=== PATIENT | male | born 1970 | race Caucasian/White ===

== ENCOUNTER 2017-12-23 10:21 | Emergency (ER) | payer MEDICAID ==
--- NOTE | 2017-12-23 10:22 | EDPHY ---
H & P Time Seen by Provider: 12/23/17 10:21 Constitutional: Initial Vital Signs Temperature (C) 36.5 C 12/23/17 10:33 Heart Rate 80 12/23/17 10:33 Respiratory Rate 18 12/23/17 10:33 Blood Pressure 131/94 H 12/23/17 10:33 O2 Sat (%) 92 12/23/17 10:33 O2 Delivery Mode Room Air Allergies/Adverse Reactions: No Known Allergies Allergy (Unverified 12/23/17 10:36) Home Medications: Medication Instructions Recorded NK [No Known Home Meds] 12/23/17 Medical Decision Making ED Course/Re-evaluation: CHIEF COMPLAINT: Alcohol withdrawal, seizure. HISTORY OF PRESENT ILLNESS: The patient is a 47 y/o male with a long history of alcoholism who arrives via EMS after a witnessed seizure and currently complaining of tremulousness and generally feeling poor. Patient drinks on a daily basis and his last alcohol intake was 18:00 last night, about 16.5 hours ago. This morning he had a witnessed seizure at 7-11. He was conscious and talking upon EMS arrival, but was very tremulous. EMS administered 2.5mg Versed en route with improvement, but not resolution of these symptoms. He continues to feel shaky and poor. He say he feels "all day just very woozy, a deep dizzy, like I'm going to go into a seizure." He denies hallucinations. No ingestions or recent trauma. He denies suicidal or homicidal thoughts or behavior. REVIEW OF SYSTEMS: A comprehensive 10 system review of systems is otherwise negative aside from elements mentioned in the history of present illness and medical decision making. PHYSICAL EXAM: General Appearance: Alert, well hydrated, appropriate, and non-toxic appearing. Head: Atraumatic without scalp tenderness or obvious injury Eyes: Pupils equal, round, reactive to light and accommodation, EOMI, no trauma , no injection. Ears: Clear bilaterally, no perforation, normal landmarks Nose: Atraumatic, no rhinorrhea, clear. Throat: There is no erythema or exudates, no lesions, normal tonsils, mucus membranes moist. Neck: Supple, nontender, no lymphadenopathy. Respiratory: No retractions, no distress, no wheezes, and no accessory muscle use. Lungs are clear to auscultation bilaterally. Cardiovascular: Regular rate and rhythm, no murmurs, rubs, or gallops. Good capillary refill all extremities. Gastrointestinal: Abdomen is soft, nontender, non-distended, no masses, no rebound, no guarding, no peritoneal signs. Musculoskeletal: Normal active ROM of all extremities, atraumatic. Neurological: Alert, appropriate, and interactive. The patient has non-focal cranial nerves, motor, sensory, and cerebellar exam. Skin: No rashes, good turgor, no nodules on palpation. PAST MEDICAL HISTORY: Alcohol abuse PAST SURGICAL HISTORY: Noncontributory SOCIAL HISTORY: From [facility]. Not employed. DIAGNOSTICS/PROCEDURES/CRITICAL CARE TIME: DIFFERENTIAL DIAGNOSIS: The differential diagnosis for the patient's symptoms included but was not limited to alcohol withdrawal, electrolyte abnormality, alcohol withdrawal, medication noncompliance, head injury, OVERNIGHT STOCKER structural abnormality, and break through seizure. MEDICAL DECISION MAKING: I serially questioned the patient and the patient's story given initially has not changed. Symptoms have improved with Ativan. The patient still denies any trauma, any head injury, and any illicit drug use. At this point, the patient is walking the department freely and is clinically sober. We're discharging the patient to the [facility] in stable condition with Librium. Return precautions discussed. - Data Points Medications Given: Discontinued Medications Chlordiazepoxide (Librium 25 Mg Prepack#6) 1 btl TAKEHOME EDNOW ONE Stop: 12/23/17 10:31 Last Admin: 12/23/17 11:15 Dose: 1 btl Sodium Chloride (Ns) 1,000 mls @ 0 mls/hr IV ONCE ONE; Wide Open PRN Reason: Protocol Stop: 12/23/17 10:39 Last Admin: 12/23/17 10:38 Dose: 1,000 mls Lorazepam (Ativan Injection) 2 mg IVP EDNOW ONE Stop: 12/23/17 10:38 Last Admin: 12/23/17 10:38 Dose: 2 mg Departure - Departure Disposition: Home, Routine, Self-Care Clinical Impression: Alcohol withdrawal Qualifiers: Complication of substance-induced condition: with unspecified complication Qualified Code(s): F10.239 - Alcohol dependence with withdrawal, unspecified Condition: Good Instructions: Chlordiazepoxide (By mouth), Alcohol Withdrawal (ED) Additional Instructions: Go directly to the [facility] for detox. Take Librium while there as directed. Return for worsening of condition. Referrals: [facility] [Outside] - As per Instructions Report Scribed for: Krishna Pierce Report Scribed by: Sofía Barnes Date of Report: 12/23/17 Time of Report: 10:27
[2017-12-23] MEDS ORDERED: LORazepam 2 MG/ML INJ ONE (10:25)
[2017-12-23] MEDS ORDERED: CHLORDIAZEPOXIDE 25MG PREPK#6 BTL TAKEHOME ONE (10:30)
[2017-12-23] MEDS ORDERED: LORazepam 2 MG/ML INJ IVP ONE (10:37)
[2017-12-23] MEDS ORDERED: NS 1,000 ML IV ONE (10:38)
[2017-12-23 11:12] VITALS: BP 150/85
== END 2017-12-23 11:36 | disposition home or self-care (01) ==
DX: F10.188 Alcohol abuse with other alcohol-induced disorder (principal)
CPT/HCPCS: 96374; J2060

== ENCOUNTER 2018-02-12 08:39 | Emergency (ER) | payer MEDICAID, OTHER ==
[2018-02-12] MEDS ORDERED: LORazepam 1 MG TAB PO PRN (09:18)
[2018-02-12] MEDS ORDERED: LORazepam 2 MG/ML INJ IVP PRN (09:18)
--- NOTE | 2018-02-12 09:34 | EDPHY ---
HPI/HX/ROS/PE/MDM Narrative: CLINICAL IMPRESSION: Alcohol withdrawal ASSESSMENT/PLAN: 47-year-old male with past medical history of alcohol abuse presents to the emergency department with withdrawal symptoms. Patient is tremulous, mildly anxious, nauseous with an initial CIWA score of 7. He is tachycardic on arrival but alert, oriented, cooperative. No clinical signs of DTs or alcohol withdrawal seizures. No metabolic disturbance, acidosis, electrolyte imbalance , transaminitis, leukocytosis, or secondary signs of infection. Patient improved with IV fluids and Ativan. He was able to tolerate food and water. He agrees to go to the addiction recovery Center. He was stabilized in the ED, sent to the [facility] with a Librium prepack in stable condition. DIFFERENTIAL DX: Differential diagnosis includes but not limited to alcohol withdrawal, delirium tremens, alcohol induced hepatic encephalopathy, wernike's encephalopathy, metabolic disturbance, electrolyte imbalance, severe dehydration, UTI, pyelonephritis ED PROCEDURES: See lab results below ED COURSE: Patient reassessed after IV fluids and Ativan. No longer tremulous, tolerating water and asking for food. Reports improved nausea. CHIEF COMPLAINT: Alcohol withdrawal HPI: 47-year-old male with a history of alcohol abuse presents to the emergency department by EMS with symptoms of alcohol withdrawal. Patient reports he frequently binge drinks with the longest period of sobriety being 2 months. [facility] is currently [facility] He reports he just came off a long 6 day binge where he was drinking"a lot". His last drink was yesterday morning. He is reporting some anxiety, mild headache, tremors, and nausea. He has never been through a formal rehab program but [facility] and had a good experience there. He is willing to go back today. He has no complaints of abdominal pain, bloody emesis, but has noted some blood in his urine associated with flank pain. No purulent penile discharge and no concern for STDs. No reported scrotal or testicular swelling. No rash. No chest pain or shortness of breath. Patient did not take anything prior to arrival and denies other illicit drug abuse. PMH: Homeless, alcoholism Pertinent Past Surgical History: None reported Family History: Noncontributory Social History: Homeless REVIEW OF SYSTEMS: All other systems negative Constitutional: No fever, no chills, + appetite change. Eyes: No discharge, vision change ENT: No sore throat, congestion, ear pain. Cardiovascular: No chest pain, no palpitations. Respiratory: No cough, no shortness of breath. Gastrointestinal: No abdominal pain, no vomiting, positive nausea, no diarrhea. Genitourinary: Positive hematuria, no dysuria, positive intermittent flank pain , pelvic pain Musculoskeletal: No back pain, joint swelling, joint pain, myalgias. Skin: No rashes, color change. Neurological: No headache, dizziness, weakness. PHYSICAL EXAM: General Appearance: Alert, oriented, appropriate, cooperative, NAD, well hydrated, non-toxic appearing, tachycardic, tremulous. HEENT: TMs are clear bilaterally no perforation or FB, no injection, no evidence of serous or mucopurulent otitis. Oropharynx clear is no erythema or exudates, no tonsillar hypertrophy or asymmetry. Dentition without abnormality. Tongue fasciculations noted Eyes: PERRLA, no acute vision change, nystagmus, swelling, discharge, pain or photosensitivity. Conjunctiva pink, no pallor or injection Neck: Supple, nontender, no lymphadenopathy, no midline pain, FROM, no meningismus. Respiratory: There are no retractions, lungs are clear to auscultation. Cardiac: Tachycardic rhythm, no murmurs or gallops.] Gastrointestinal: Abdomen is soft, nontender, bowel sounds normal, no masses/ hernia, no rigidity, guarding or focal peritoneal findings. Neurological: Alert and oriented x 3, CN 2-12 grossly intact, normal gait no ataxia, DTR's intact, normal sensation and strength Skin: Warm, dry, no rashes, no nodules on palpation. Musculoskeletal: Extremities are symmetrical, full range of motion, no tenderness, deformity, swelling, or erythema. Psychiatric: Patient is oriented X 3, there is no agitation, no auditory or visual hallucinations, no suicidal or homicidal ideations. MEDICAL DECISION MAKING: Patient was seen independently. Secondary supervising physician at time of evaluation was Dr. Perez. Diagnosis: Alcohol intoxication, alcohol withdrawal. New, requires workup Summary: See Assessment and Plan for summary of ED visit Clinical lab tests: ordered / reviewed. Patient Progress: Stabilized . (Car Abernathy) ED Course: The patient was evaluated and managed by the Physician Teaching Assistant. I discussed the patient's presentation and course with the physician application assistant and agree with the evaluation. My co-signature indicates that I have reviewed this chart and I agree with the findings and plan of care as documented. I am the secondary supervising physician. (Tamela Perez) - Data Points Laboratory Results: Laboratory Results 02/12/18 08:45 02/12/18 08:45 Medications Given: Discontinued Medications Chlordiazepoxide (Librium 25 Mg Prepack#6) 1 btl TAKEHOME EDNOW ONE Stop: 02/12/18 11:41 Last Admin: 02/12/18 11:51 Dose: 1 btl Sodium Chloride (Ns) 1,000 mls @ 0 mls/hr IV EDNOW ONE; Wide Open PRN Reason: Protocol Stop: 02/12/18 09:48 Last Admin: 02/12/18 10:37 Dose: 1,000 mls Lorazepam (Ativan Injection) 0 mg IVP Q1H PRN; Protocol PRN Reason: Alcohol Withdrawal w/IV access Stop: 02/12/18 21:18 Last Admin: 02/12/18 09:22 Dose: 2 mg General Time Seen by Provider: 02/12/18 08:52 Initial Vital Signs: Initial Vital Signs Temperature (C) 36.6 C 02/12/18 08:39 Heart Rate 86 02/12/18 08:39 Respiratory Rate 18 02/12/18 08:39 Blood Pressure 169/99 H 02/12/18 08:39 O2 Sat (%) 96 02/12/18 08:39 O2 Delivery Mode Room Air Allergies/Adverse Reactions: No Known Allergies Allergy (Unverified 12/23/17 10:36) Departure - Departure Disposition: Home, Routine, Self-Care Clinical Impression: Alcohol withdrawal Condition: Fair Instructions: Chlordiazepoxide (By mouth), Alcohol Withdrawal (ED) Additional Instructions: DISCHARGE INSTRUCTIONS FROM YOUR DOCTOR Thank you for visiting our emergency department today. Please keep in mind that discharge from the emergency department does not mean that there is nothing wrong - it simply means that we have not identified an emergency condition that requires further evaluation or treatment in the hospital. You should always plan to follow up with primary care for re-evaluation of your condition in the next 2-3 days. If you have been referred to a specialist, please call as soon as possible (today or tomorrow) to schedule your follow up appointment at the appropriate time. Your lab results were reassuring. You do not have evidence of blood in your urine or urinary tract infection. No evidence of severe electrolyte imbalance, severe dehydration, or abnormal liver enzymes. We are [facility]. Please ask them about additional resources for rehab. A meal was ordered for you here. Please return to the emergency department for worsening tremors, severe headache, auditory or visual hallucinations, seizure activity, severe anxiety, or any other concerns. People present with illnesses and injuries in different ways, and it is always possible that we have missed something. You may always return for re-evaluation if symptoms worsen or if they are not improving or if you develop new/different symptoms. Again, thank you for choosing our emergency department. We hope that you feel better. Referrals: NONE *PRIMARY CARE P,. [Primary Care Provider] - As per Instructions [facility],. [Clinic] - As per Instructions
[2018-02-12 09:36] LABS: PLATELET COUNT 316 10^3/uL (150-400)
[2018-02-12] MEDS ORDERED: NS 1,000 ML IV ONE (09:47)
[2018-02-12] MEDS ORDERED: CHLORDIAZEPOXIDE 25MG PREPK#6 BTL TAKEHOME ONE (11:40)
[2018-02-12 11:55] VITALS: BP 129/96
== END 2018-02-12 12:27 | disposition home or self-care (01) ==
LOC: EDUNIT#
DX: F10.239 Alcohol dependence with withdrawal, unspecified (principal); Z59.0 Homelessness
CPT/HCPCS: 96374; G0480; J2060